=== PATIENT | male | born 1995 | race Hispanic/Latino ===

== ENCOUNTER 2017-07-16 11:42 | Emergency (ER) | payer SELFPAY ==
[2017-07-16 11:53] VITALS: BP 105/59; PULSE 96; RESP 20; O2SAT 97
--- NOTE | 2017-07-16 12:41 | ED PDOC ---
HPI: Psych/Substance Abuse Time Seen by Provider: 07/16/17 12:07 Chief Complaint (Nursing): Psychiatric Evaluation Chief Complaint (Provider): crisis eval History Per: Patient, EMS Additional Complaint(s): 21-year-old male presents for crisis evaluation. Patient states he is feeling suicidal on and off for about 2 months but denies plan. He was seen by a psychiatrist 2 months ago and was given rx for Lexapro but he never started the medication. Upon arrival patient denies feeling suicidal and states he thinks he would benefit from outpatient therapy. PMD: none Past Medical History Reviewed: Historical Data, Nursing Documentation, Vital Signs Vital Signs: Last Vital Signs Temp Pulse 96 H 07/16/17 11:51 Resp 20 07/16/17 11:51 BP 105/59 L 07/16/17 11:51 Pulse Ox 97 07/16/17 11:51 - Medical History PMH: Depression - Surgical History Surgical History: No Surg Hx - Family History Family History: States: No Known Family Hx - Living Arrangements Living Arrangements: With Family - Social History Current smoker - smoking cessation education provided: No Alcohol: Occasional Drugs: Denies - Allergies Allergies/Adverse Reactions: Allergies Allergy/AdvReac Type Severity Reaction Status Date / Time No Known Allergies Allergy Verified 07/16/17 11:53 Review of Systems ROS Statement: Except As Marked, All Systems Reviewed And Found Negative Psych: Positive for: Suicidal ideation (no plan) Physical Exam - Reviewed Nursing Documentation Reviewed: Yes Vital Signs Reviewed: Yes - Physical Exam Appears: Positive for: Well, Non-toxic, No Acute Distress Skin: Negative for: Rash Eye Exam: Positive for: Normal appearance Cardiovascular/Chest: Positive for: Regular Rate, Rhythm Respiratory: Positive for: Normal Breath Sounds. Negative for: Wheezing, Respiratory Distress Neurologic/Psych: Positive for: Alert, Oriented - ECG O2 Sat by Pulse Oximetry: 97 Pulse Ox Interpretation: Normal Medical Decision Making Medical Decision Makin21 year old male here for crisis eval Plan: Crisis eval 1:1 bedside observation As per crisis counselor and psychiatrist regional director, Dr. Coelho, patient does not meet criteria for admission and is stable for discharge. Patient was given appt for follow up. Disposition - Clinical Impression Clinical Impression: Depression - Patient ED Disposition Is Patient to be Admitted: No Counseled Patient/Family Regarding: Need For Followup - Disposition Referrals: [facility] [Outside] Disposition: Routine/Home Disposition Time: 15:48 Condition: STABLE Additional Instructions: Follow up as directed. Instructions: Depression, Adult (DC) Forms: [employer] ([place])
== END 2017-07-16 23:55 | disposition home or self-care (01) ==
LOC: H.ER 11:42
DX: R45.851 Suicidal ideations (principal); F32.9 Major depressive disorder, single episode, unspecified

== ENCOUNTER 2018-05-12 19:40 | Observation (INO) | payer BC ==
--- NOTE | 2018-05-12 22:36 | ED PDOC ---
HPI: Male Pain Time Seen by Provider: 05/12/18 22:10 Chief Complaint (Nursing): Male Genitourinary Chief Complaint (Provider): Penile swelling History Per: Patient History/Exam Limitations: no limitations Additional Complaint(s): Pt uncircumcised reports swelling to tip of penis today, unable to retract. Denies trauma, new soap, difficulty urinating. Past Medical History Reviewed: Nursing Documentation, Vital Signs Vital Signs: Last Vital Signs Temp 98.2 F 05/12/18 21:22 Pulse 104 H 05/12/18 21:22 Resp 18 05/12/18 21:22 BP 124/74 05/12/18 21:22 Pulse Ox 99 05/12/18 21:22 - Medical History PMH: Depression Denies: Diabetes, Hepatitis, HIV, HTN, Seizures, Sexually Transmitted Disease - Surgical History Surgical History: No Surg Hx - Family History Family History: States: Unknown Family Hx - Social History Current smoker - smoking cessation education provided: No Alcohol: None - Home Medications Home Medications: Ambulatory Orders Medication Instructions Recorded Bupropion HCl [Wellbutrin Sr] 150 mg PO DAILY 05/12/18 Escitalopram [Lexapro] 1 mg PO DAILY 05/12/18 - Allergies Allergies/Adverse Reactions: Allergies Allergy/AdvReac Type Severity Reaction Status Date / Time No Known Allergies Allergy Verified 07/16/17 11:53 Review of Systems Constitutional: Negative for: Fever, Chills Genitourinary Male: Negative for: Dysuria, Hematuria, Scrotal Pain, Penile Pain Skin: Positive for: Lesions. Negative for: Rash Physical Exam - Reviewed Nursing Documentation Reviewed: Yes Vital Signs Reviewed: Yes - Physical Exam Appears: Positive for: Well, No Acute Distress Skin: Positive for: Normal Color, Warm, Dry Cardiovascular/Chest: Positive for: Regular Rate, Rhythm Respiratory: Positive for: Normal Breath Sounds Male Genital Exam: Positive for: lesions (Fluid-filled area inferior half penis proximal to head of penis, no TTP, no vesicles, no pustular drainage, no induration, foreskin retracted, no edema superiorly), other (Treating Plant Operator: DANITZA Peters) - Laboratory Results Result Diagrams: 05/12/18 23:26 05/12/18 23:26 - ECG O2 Sat by Pulse Oximetry: 99 Medical Decision Making Medical Decision Makin yo male with penile lesion. - Urology consult 22:[address] Paredes, recommends admission for possible OR tomorrow. Disposition - Clinical Impression Clinical Impression: Penile lesion - Patient ED Disposition Is Patient to be Admitted: Yes - Disposition Disposition Time: 22:52 Condition: STABLE - Pt Status Changed To: Hospital Disposition Of: Observation - POA Present On Arrival: None
[2018-05-12 23:30] LABS: BASO % 0.2 % (0.0-2.0); EOS # 0.1 K/uL (0.0-0.7); EOS % 1.4 % (0.0-4.0); HEMOGLOBIN 17.2 g/dL (12.0-18.0); LYMPH # 1.2 K/uL (1.0-4.3); LYMPH % 22.3 % (20.0-40.0); MEAN CELL VOLUME 86.9 fl (80.0-94.0); MEAN CORPUSCULAR HEMOGLOBIN 29.5 pg (27.0-31.0); MEAN CORPUSCULAR HGB CONC 33.9 g/dL (33.0-37.0); MEAN PLATELET VOLUME 8.8 fl (7.2-11.7); MONO # 0.6 K/uL (0.0-0.8); MONO % 11.7 % (0.0-10.0); NEUT # 3.5 K/uL (1.8-7.0); NEUT % 64.4 % (50.0-75.0); NRBC % 0.2 % (0.0-0.0); RBC 5.85 Mil/uL (4.40-5.90); RED CELL DISTRIBUTION WIDTH 13.1 % (11.5-14.5); WHITE BLOOD COUNT 5.4 K/uL (4.8-10.8)
[2018-05-12 23:33] LABS: INR 1.1
[2018-05-12 23:36] LABS: PARTIAL THROMBOPLASTIN TIME 39.8 Seconds (25.6-37.1)
[2018-05-12 23:39] LABS: ALB/GLOB RATIO 1.3 (1.0-2.1); ALT/SGPT 32 U/L (21-72); AST/SGOT 36 U/L (17-59); BLOOD UREA NITROGEN 16 mg/dl (9-20); CALCIUM 9.9 mg/dL (8.4-10.2); GFR NON-AFRICAN AMERICAN > 60
[2018-05-12] MEDS ORDERED: Sodium Chloride 0.9% 1,000 ML IV SCH (23:45)
--- NOTE | 2018-05-13 00:23 | CP.PCM.HP ---
<Doreen De Paz - Last Filed: 05/13/18 01:18> History of Present Illness - History of Present Illness History of Present Illness: 22yo M with history of anxiety, presented to ED due to inability to retract foreskin x 1 day. Pt is uncircumsized male, states he retracted foreskin for the first time yesterday, and feels like he applied force to do so. Today, foreskin was adherent below moore and he could not bring it back up; also noticed bubble formed on lateral side of penis. Denies dysuria, hematuria. Denies prior intercourse, denies history of STI. Denies chronic medical problems. Denies chest pain, shortness of breath, abdominal pain, n/v/d/c, dysuria, hematuria. PMD: none Med hx: anxiety Surg hx: none Social hx: denies tobacco use, social alcohol use 2x a week, denies drug use Medications: lexapro, wellbutrin Family hx: diabetes and htn In ED: Vitals: BP 124/74, HR 104, RR 18, SpO2 99 on room air, Ze 98.2 CBC unremarkable, no leukocytosis INR 1.1 No electrolyte disturbance Urology consulted in ED; as per ED note Dr. Paredes rec admission for possible OR. Present on Admission - Present on Admission Any Indicators Present on Admission: No Review of Systems - Constitutional Constitutional: absent: Fever - Cardiovascular Cardiovascular: absent: Chest Pain - Respiratory Respiratory: absent: Cough, Dyspnea - Gastrointestinal Gastrointestinal: absent: Abdominal Pain - Genitourinary Genitourinary: absent: Change in Urinary Stream, Dysuria, Pyuria, Urinary Frequency - Reproductive: Male Additional comments: penile swelling/foreskin swelling - Musculoskeletal Musculoskeletal: absent: Arthralgias - Psychiatric Psychiatric: Anxiety (well controlled at this time) Past Patient History - Past Social History Smoking Status: Never Smoked Alcohol: Occasional Drugs: Denies - CARDIAC Hx Hypertension: No - PULMONARY Hx Tuberculosis: No - NEUROLOGICAL Hx Seizures: No - HEMATOLOGICAL/ONCOLOGICAL Hx Human Immunodeficiency Virus (HIV): No - GENITOURINARY/GYNECOLOGICAL Hx Sexually Transmitted Disorders: No - PSYCHIATRIC Hx Depression: Yes Meds Allergies/Adverse Reactions: Allergies Allergy/AdvReac Type Severity Reaction Status Date / Time No Known Allergies Allergy Verified 07/16/17 11:53 Physical Exam - Constitutional Appears: No Acute Distress, Younger Than Stated Age - Head Exam Head Exam: NORMAL INSPECTION - Eye Exam Eye Exam: Normal appearance - ENT Exam ENT Exam: Mucous Membranes Moist - Neck Exam Neck exam: Positive for: Full Rom - Respiratory Exam Respiratory Exam: Clear to Auscultation Bilateral, NORMAL BREATHING PATTERN - Cardiovascular Exam Cardiovascular Exam: REGULAR RHYTHM, +S1, +S2 - GI/Abdominal Exam GI & Abdominal Exam: Soft - Exam Exam: absent: NORMAL INSPECTION Additional comments: fluid filled bubble on left lateral side of penis, foreskin appears retracted; not tender to palpation, no urethral discharge visible; unremarkable scrotum; examined with Dr. Love; Results - Vital Signs Recent Vital Signs: Last Vital Signs Temp 98.7 F 05/13/18 00:14 Pulse 94 H 05/13/18 00:14 Resp 17 05/13/18 00:14 BP 143/70 05/13/18 00:14 Pulse Ox 99 05/13/18 00:14 - Labs Result Diagrams: 05/12/18 23:26 05/12/18 23:26 Labs: Laboratory Results - last 24 hr 05/12/18 05/12/18 05/12/18 23:26 23:26 23:26 WBC 5.4 RBC 5.85 Hgb 17.2 Hct 50.9 MCV 86.9 MCH 29.5 MCHC 33.9 RDW 13.1 Plt Count 200 MPV 8.8 Neut % (Auto) 64.4 Lymph % (Auto) 22.3 [place] % (Auto) 11.7 H Eos % (Auto) 1.4 Baso % (Auto) 0.2 Neut # (Auto) 3.5 Lymph # (Auto) 1.2 [place] # (Auto) 0.6 Eos # (Auto) 0.1 Baso # (Auto) 0.0 PT 12.0 INR 1.1 APTT 39.8 H Sodium 139 Potassium 3.8 Chloride 98 Carbon Dioxide 26 Anion Gap 19 BUN 16 Creatinine 0.8 Est GFR ( Amer) > 60 Est GFR (Non-Af Amer) > 60 Random Glucose 108 Calcium 9.9 Total Bilirubin 1.4 H AST 36 ALT 32 Alkaline Phosphatase 63 Total Protein 8.8 H Albumin 5.0 Globulin 3.8 Albumin/Globulin Ratio 1.3 Assessment & Plan - Assessment and Plan (Free Text) Assessment: 22 yo M with hx anxiety; with retracted foreskin and phimosis. Plan: Paraphimosis - Urology eval - Dr. Paredes, recs appreciated; rec admission for possible OR in am - Pain control with tylenol 325 mg Q4hrs prn for mild pain, 650 Q6hrs prn mod pain Anxiety - Home meds lexapro and wellbutrin Diet - NPO except meds - IVF NS @ 80 ml/hr DVT prophylaxis - SCD for now Pt seen/examined/discussed with Dr. Love. <Chad Love - Last Filed: 05/13/18 06:32> Results - Vital Signs Recent Vital Signs: Last Vital Signs Temp 97.6 F 05/13/18 00:56 Pulse 91 H 05/13/18 00:56 Resp 20 05/13/18 00:56 BP 129/76 05/13/18 00:56 Pulse Ox 98 05/13/18 00:56 - Labs Result Diagrams: 05/12/18 23:26 05/12/18 23:26 Labs: Laboratory Results - last 24 hr 05/12/18 05/12/18 05/12/18 23:26 23:26 23:26 WBC 5.4 RBC 5.85 Hgb 17.2 Hct 50.9 MCV 86.9 MCH 29.5 MCHC 33.9 RDW 13.1 Plt Count 200 MPV 8.8 Neut % (Auto) 64.4 Lymph % (Auto) 22.3 [place] % (Auto) 11.7 H Eos % (Auto) 1.4 Baso % (Auto) 0.2 Neut # (Auto) 3.5 Lymph # (Auto) 1.2 [place] # (Auto) 0.6 Eos # (Auto) 0.1 Baso # (Auto) 0.0 PT 12.0 INR 1.1 APTT 39.8 H Sodium 139 Potassium 3.8 Chloride 98 Carbon Dioxide 26 Anion Gap 19 BUN 16 Creatinine 0.8 Est GFR ( Amer) > 60 Est GFR (Non-Af Amer) > 60 Random Glucose 108 Calcium 9.9 Total Bilirubin 1.4 H AST 36 ALT 32 Alkaline Phosphatase 63 Total Protein 8.8 H Albumin 5.0 Globulin 3.8 Albumin/Globulin Ratio 1.3 Attending/Attestation - Attestation I have personally seen and examined this patient.: Yes I have fully participated in the care of the patient.: Yes I have reviewed all pertinent clinical information: Yes Notes (Text): 05/13/18 05:34 Isaw, examined and discussed this patient with Dr De Paz. I agree with the assessment and plan above. This is a 22 years male with no significant medical hx comes with one day of pain and swelling to the distal penis. He retracted the Prepuce for the first time and developed pain and swelling, with the fluid collection appearing as a large blister at the posterior head of penis. Urology is consulted for Paraphimosis for possible circumcision. Chda Love MD
[2018-05-13 00:57] VITALS: RESP 20
--- NOTE | 2018-05-13 08:20 | RAD ---
Date of service: 05/12/2018 HISTORY: Medical clearance COMPARISON: None available. FINDINGS: LUNGS: No active pulmonary disease. PLEURA: No significant pleural effusion identified, no pneumothorax apparent. CARDIOVASCULAR: No aortic atherosclerotic calcification present. Normal cardiac size. No pulmonary vascular congestion. OSSEOUS STRUCTURES: No significant abnormalities. VISUALIZED UPPER ABDOMEN: Normal. OTHER FINDINGS: None. IMPRESSION: No interval acute cardiopulmonary disease appreciated.
[2018-05-13] MEDS ORDERED: buPROPion SR 150 MG TABLET PO SCH (09:00)
[2018-05-13 11:02] LABS: URINE BILIRUBIN NEGATIVE (NEGATIVE); URINE BLOOD NEGATIVE (NEGATIVE); URINE CLARITY SLIGHTY-CLOUDY (Clear); URINE COLOR YELLOW (YELLOW); URINE GLUCOSE (UA) NEG (NEGATIVE); URINE LEUKOCYTE ESTERASE NEG Leu/uL (Negative); URINE PROTEIN NEGATIVE (NEGATIVE); URINE UROBILINOGEN 0.2-1.0 mg/dL (0.2-1.0)
[2018-05-13] MEDS ORDERED: Propofol 10 mg/ml Inj (20 ML) ONE (11:20)
[2018-05-13] MEDS ORDERED: Midazolam 2 MG/2 ML VIAL ONE (11:20)
[2018-05-13] MEDS ORDERED: Lidocaine 1% 5ml Abboject ONE (11:21)
[2018-05-13] MEDS ORDERED: Lidocaine 2% Jelly (5 ml) TOP ONE (11:21)
--- NOTE | 2018-05-13 12:08 | CP.PCM.DIS ---
<Nina Rojas - Last Filed: 05/13/18 12:05> Provider - Provider Date of Admission: 05/12/18 22:52 Attending physician: Chad Love Consults: 05/12/18 22:52 Urology Consult Stat Comment: Consulting Provider: Nathaniel Paredes Consulting Physician: Nathaniel Paredes Reason for Consult: Penile lesion Time Spent in preparation of Discharge (in minutes): 35 Diagnosis - Discharge Diagnosis (1) Paraphimosis Status: Resolved Priority: Low Hospital Course - Lab Results Lab Results: Most Recent Lab Values WBC 5.4 K/uL (4.8-10.8) 05/12/18 23:26 RBC 5.85 Mil/uL (4.40-5.90) 05/12/18 23:26 Hgb 17.2 g/dL (12.0-18.0) 05/12/18 23:26 Hct 50.9 % (35.0-51.0) 05/12/18 23:26 MCV 86.9 fl (80.0-94.0) 05/12/18 23:26 MCH 29.5 pg (27.0-31.0) 05/12/18 23:26 MCHC 33.9 g/dL (33.0-37.0) 05/12/18 23:26 RDW 13.1 % (11.5-14.5) 05/12/18 23:26 Plt Count 200 K/uL (130-400) 05/12/18 23:26 MPV 8.8 fl (7.2-11.7) 05/12/18 23:26 Neut % (Auto) 64.4 % (50.0-75.0) 05/12/18 23:26 Lymph % (Auto) 22.3 % (20.0-40.0) 05/12/18 23:26 [place] % (Auto) 11.7 % (0.0-10.0) H 05/12/18 23:26 Eos % (Auto) 1.4 % (0.0-4.0) 05/12/18 23:26 Baso % (Auto) 0.2 % (0.0-2.0) 05/12/18 23:26 Neut # (Auto) 3.5 K/uL (1.8-7.0) 05/12/18 23:26 Lymph # (Auto) 1.2 K/uL (1.0-4.3) 05/12/18 23:26 [place] # (Auto) 0.6 K/uL (0.0-0.8) 05/12/18 23:26 Eos # (Auto) 0.1 K/uL (0.0-0.7) 05/12/18 23:26 Baso # (Auto) 0.0 K/uL (0.0-0.2) 05/12/18 23:26 PT 12.0 Seconds (9.8-13.1) 05/12/18 23:26 INR 1.1 05/12/18 23:26 APTT 39.8 Seconds (25.6-37.1) H 05/12/18 23:26 Sodium 139 mmol/l (132-148) 05/12/18 23:26 Potassium 3.8 MMOL/L (3.6-5.0) 05/12/18 23:26 Chloride 98 mmol/L (98-107) 05/12/18 23:26 Carbon Dioxide 26 mmol/L (22-30) 05/12/18 23:26 Anion Gap 19 (10-20) 05/12/18 23:26 BUN 16 mg/dl (9-20) 05/12/18 23:26 Creatinine 0.8 mg/dl (0.8-1.5) 05/12/18 23:26 Est GFR ( Amer) > 60 05/12/18 23:26 Est GFR (Non-Af Amer) > 60 05/12/18 23:26 Random Glucose 108 mg/dL (75-110) 05/12/18 23:26 Calcium 9.9 mg/dL (8.4-10.2) 05/12/18 23:26 Total Bilirubin 1.4 mg/dl (0.2-1.3) H 05/12/18 23:26 AST 36 U/L (17-59) 05/12/18 23:26 ALT 32 U/L (21-72) 05/12/18 23:26 Alkaline Phosphatase 63 U/L (38-126) 05/12/18 23:26 Total Protein 8.8 G/DL (6.3-8.2) H 05/12/18 23:26 Albumin 5.0 g/dL (3.5-5.0) 05/12/18 23:26 Globulin 3.8 gm/dL (2.2-3.9) 05/12/18 23:26 Albumin/Globulin Ratio 1.3 (1.0-2.1) 05/12/18 23:26 Urine Color Yellow (YELLOW) 05/13/18 10:48 Urine Clarity Slighty-cloudy (Clear) 05/13/18 10:48 Urine pH 7.0 (5.0-8.0) 05/13/18 10:48 Ur Specific [place] 1.025 (1.003-1.030) 05/13/18 10:48 Urine Protein Negative mg/dL (NEGATIVE) 05/13/18 10:48 Urine Glucose (UA) Neg mg/dL (NEGATIVE) 05/13/18 10:48 Urine Ketones Trace mg/dL (NEGATIVE) 05/13/18 10:48 Urine Blood Negative (NEGATIVE) 05/13/18 10:48 Urine Nitrate Negative (NEGATIVE) 05/13/18 10:48 Urine Bilirubin Negative (NEGATIVE) 05/13/18 10:48 Urine Urobilinogen 0.2-1.0 mg/dL (0.2-1.0) 05/13/18 10:48 Ur Leukocyte Esterase Neg Joe/uL (Negative) 05/13/18 10:48 Urine RBC (Auto) 2 /hpf (0-3) 05/13/18 10:48 Urine Microscopic WBC 1 /hpf (0-5) 05/13/18 10:48 - Hospital Course Hospital Course: 22yo uncircumcised male w/ hx of anxiety, presented to ED due to inability to retract penis' foreskin x 1 day, and was admitted for paraphimosis. Urology consulted in ED; Dr. Paredes rec admission for possible OR. Dr. Paredes reduced the swelling manually. Patient stable for discharge to home w/ instructions to follow up w/ urologist in 2-4 weeks. Discharge Exam - Head Exam Head Exam: NORMAL INSPECTION - Respiratory Exam Respiratory Exam: NORMAL BREATHING PATTERN - Cardiovascular Exam Cardiovascular Exam: REGULAR RHYTHM, +S1, +S2 - Exam Exam: absent: Circumcision, Scrotal Swelling, Testicular Tenderness (swelling resembling blister at dorsum of glans ), Uretheral Discharge - Neurological Exam Neurological exam: Alert - Psychiatric Exam Psychiatric exam: Normal Affect - Skin Skin Exam: Dry, Intact, Warm Discharge Plan - Follow Up Plan Condition: STABLE Disposition: HOME/ ROUTINE Patient education suggested?: Yes Instructions: How to Wash Your Hands Properly, Circumcision, Adult Male (DC) Additional Instructions: follow up with dr paredes in 2 weeks follow up with your primary MD 1 week Referrals: [facility] [Outside] Nathaniel Paredes MD [Medical Doctor] - <Imelda Damian - Last Filed: 05/13/18 17:56> Provider - Provider Date of Admission: 05/12/18 22:52 Attending physician: Chad Love Consults: 05/12/18 22:52 Urology Consult Stat Comment: Consulting Provider: Nathaniel Paredes Consulting Physician: Nathaniel Paredes Reason for Consult: Penile lesion Hospital Course - Lab Results Lab Results: Most Recent Lab Values WBC 5.4 K/uL (4.8-10.8) 05/12/18 23:26 RBC 5.85 Mil/uL (4.40-5.90) 05/12/18 23:26 Hgb 17.2 g/dL (12.0-18.0) 05/12/18 23:26 Hct 50.9 % (35.0-51.0) 05/12/18 23:26 MCV 86.9 fl (80.0-94.0) 05/12/18 23:26 MCH 29.5 pg (27.0-31.0) 05/12/18 23:26 MCHC 33.9 g/dL (33.0-37.0) 05/12/18 23:26 RDW 13.1 % (11.5-14.5) 05/12/18 23:26 Plt Count 200 K/uL (130-400) 05/12/18 23:26 MPV 8.8 fl (7.2-11.7) 05/12/18 23:26 Neut % (Auto) 64.4 % (50.0-75.0) 05/12/18 23:26 Lymph % (Auto) 22.3 % (20.0-40.0) 05/12/18 23:26 [place] % (Auto) 11.7 % (0.0-10.0) H 05/12/18 23:26 Eos % (Auto) 1.4 % (0.0-4.0) 05/12/18 23:26 Baso % (Auto) 0.2 % (0.0-2.0) 05/12/18 23:26 Neut # (Auto) 3.5 K/uL (1.8-7.0) 05/12/18 23:26 Lymph # (Auto) 1.2 K/uL (1.0-4.3) 05/12/18 23:26 [place] # (Auto) 0.6 K/uL (0.0-0.8) 05/12/18 23:26 Eos # (Auto) 0.1 K/uL (0.0-0.7) 05/12/18 23:26 Baso # (Auto) 0.0 K/uL (0.0-0.2) 05/12/18 23:26 PT 12.0 Seconds (9.8-13.1) 05/12/18 23:26 INR 1.1 05/12/18 23:26 APTT 39.8 Seconds (25.6-37.1) H 05/12/18 23:26 Sodium 139 mmol/l (132-148) 05/12/18 23:26 Potassium 3.8 MMOL/L (3.6-5.0) 05/12/18 23:26 Chloride 98 mmol/L (98-107) 05/12/18 23:26 Carbon Dioxide 26 mmol/L (22-30) 05/12/18 23:26 Anion Gap 19 (10-20) 05/12/18 23:26 BUN 16 mg/dl (9-20) 05/12/18 23:26 Creatinine 0.8 mg/dl (0.8-1.5) 05/12/18 23:26 Est GFR ( Amer) > 60 05/12/18 23:26 Est GFR (Non-Af Amer) > 60 05/12/18 23:26 Random Glucose 108 mg/dL (75-110) 05/12/18 23:26 Calcium 9.9 mg/dL (8.4-10.2) 05/12/18 23:26 Total Bilirubin 1.4 mg/dl (0.2-1.3) H 05/12/18 23:26 AST 36 U/L (17-59) 05/12/18 23:26 ALT 32 U/L (21-72) 05/12/18 23:26 Alkaline Phosphatase 63 U/L (38-126) 05/12/18 23:26 Total Protein 8.8 G/DL (6.3-8.2) H 05/12/18 23:26 Albumin 5.0 g/dL (3.5-5.0) 05/12/18 23:26 Globulin 3.8 gm/dL (2.2-3.9) 05/12/18 23:26 Albumin/Globulin Ratio 1.3 (1.0-2.1) 05/12/18 23:26 Urine Color Yellow (YELLOW) 05/13/18 10:48 Urine Clarity Slighty-cloudy (Clear) 05/13/18 10:48 Urine pH 7.0 (5.0-8.0) 05/13/18 10:48 Ur Specific [place] 1.025 (1.003-1.030) 05/13/18 10:48 Urine Protein Negative mg/dL (NEGATIVE) 05/13/18 10:48 Urine Glucose (UA) Neg mg/dL (NEGATIVE) 05/13/18 10:48 Urine Ketones Trace mg/dL (NEGATIVE) 05/13/18 10:48 Urine Blood Negative (NEGATIVE) 05/13/18 10:48 Urine Nitrate Negative (NEGATIVE) 05/13/18 10:48 Urine Bilirubin Negative (NEGATIVE) 05/13/18 10:48 Urine Urobilinogen 0.2-1.0 mg/dL (0.2-1.0) 05/13/18 10:48 Ur Leukocyte Esterase Neg Joe/uL (Negative) 05/13/18 10:48 Urine RBC (Auto) 2 /hpf (0-3) 05/13/18 10:48 Urine Microscopic WBC 1 /hpf (0-5) 05/13/18 10:48 Attending/Attestation - Attestation I have personally seen and examined this patient.: Yes I have fully participated in the care of the patient.: Yes I have reviewed all pertinent clinical information, including history, physical exam and plan: Yes
[2018-05-13 17:59] VITALS: BP 113/59; PULSE 87; TEMP 97.4
[2018-05-16 13:55] VITALS: O2SAT 99
== END 2018-05-13 13:48 | disposition home or self-care (01) ==
LOC: H.ER 19:40 → H.ERHOLD 22:52 → H.MEDSURG1 05-13 00:46
PROVIDERS: ADMIT Internal Medicine; ATTEND Internal Medicine
DX: N47.2 Paraphimosis (principal); N48.89 Other specified disorders of penis; F41.9 Anxiety disorder, unspecified; Z53.8 Procedure and treatment not carried out for other reasons
CPT/HCPCS: 71045; 80053; 81003; 85025; 85610; 85730; 99284; G0378; J2250; J2704; J3010; J7030